=== PATIENT | female | born 1995 | race Two or more races ===

== ENCOUNTER 2020-09-18 09:44 | Emergency (ER) | payer SELFPAY ==
[~2020-09-18] VITALS: Ht 172.7 cm; Wt 168.2 kg
[2020-09-18 09:58] VITALS: BP 142/94
[2020-09-18] MEDS ORDERED: ONDANSETRON 4MG ODT PO ONE (10:30)
[2020-09-18] MEDS ORDERED: DOXYCYCLINE HYCLATE 100MG CAPSULE PO ONE (10:30)
[2020-09-18] MEDS ORDERED: ALBUTEROL 6.7GM HFA INHALER ORI ONE (11:00)
[2020-09-18 11:55] LABS: BASOPHILS % 0.4 % (0.0-2.0); EOSINOPHILS % 0.8 % (0.0-5.0); HEMATOCRIT. 43.5 % (36.0-48.0); HEMOGLOBIN. 14.3 g/dL (12.0-16.0); LYMPHOCYTES % 31.2 % (20.0-50.0); MEAN CORPUSCULAR HEMOGLOBIN 24.9 pg (28.0-32.0); MEAN CORPUSCULAR VOLUME 75.6 fL (81.0-99.0); MEAN PLATELET VOLUME 8.6 fl (7.4-10.4); MONOCYTES % 9.5 % (2.0-8.0); NEUTROPHILS % 58.1 % (40.0-76.0); PLATELET 207 x1000/uL (130-400); RED BLOOD CELL COUNT 5.75 mill/uL (4.2-5.4); RED CELL DISTRIBUTION WIDTH 14.5 % (11.6-14.6)
[2020-09-18 12:01] LABS: CHLORIDE 108 mEq/L (98-107)
== END 2020-09-18 13:26 | disposition home or self-care (01) ==
LOC: ER 09:44
DX: J40 Bronchitis, not specified as acute or chronic (principal); E11.9 Type 2 diabetes mellitus without complications; U07.1 COVID-19
CPT/HCPCS: 36415; 71045; 80048; 85025; 93005; 99285; Q0162